=== PATIENT | male | born 1955 | race Caucasian/White ===

== ENCOUNTER 2022-02-22 09:04 | Observation (INO) ==
[2022-02-22] MEDS ORDERED: MORPHINE SULFATE INJ 2 MG INJ IVP PRN (11:19)
[2022-02-22] MEDS ORDERED: NS 250 ML IV 250 ML IV ONE (12:58)
[2022-02-22] MEDS: ZOSYN VIAL 3.375 GRAMS 3.375 G in NS 100 ML IV 100 ML IV SCH ×3 (13:19→21:48)
[2022-02-22] MEDS: D5 1/2 NS 1,000 ML 1,000 ML IV SCH ×2 (13:19→17:04)
[2022-02-22 13:20] VITALS: BMI 37.5
[2022-02-22] MEDS ORDERED: PROVENTIL NEB TX 0.083% 2.5MG/ 3ML NEB PRN (14:52)
--- NOTE | 2022-02-22 16:11 | RAD ---
HISTORY:Cardiovascular clearance for gallbladder surgeryStudy: Single view chestComparison:NoneFindings:Single underpenetrated, upright portable view is submitted. Lung volumes are low. No infiltrate, effusion, or pneumothorax identified .Cardiac and mediastinal contours are within normal limits .The soft tissues are intact .IMPRESSION:Low lung volumes without acute abnormality.Electronically signed by: CODY DURÁN (Feb 22, 2022 16:10:27)
[2022-02-22] MEDS: DILAUDID INJ IVP PRN (19:58)
[2022-02-23] MEDS: D5 1/2 NS 1,000 ML 1,000 ML IV SCH ×4 (01:06→12:24)
[2022-02-23] MEDS: DILAUDID INJ IVP PRN (04:37)
[2022-02-23] MEDS: ZOSYN VIAL 3.375 GRAMS 3.375 G in NS 100 ML IV 100 ML IV SCH (05:19)
[2022-02-23 06:47] LABS: ALANINE AMINOTRANSFERASE 52 Units/L (12-78); ALBUMIN 2.6 g/dL (3.4-5.0); ALKALINE PHOSPHATASE 49 Units/L (46-116); ASPARTATE AMINO TRANSFERASE 31 Units/L (15-37); BLOOD UREA NITROGEN 25 mg/dL (7-18); CALCIUM 7.8 mg/dL (8.5-10.1); CHLORIDE 103 mmol/L (98-107); COR CA(FOR HYPOALB) 8.9 mg/dL (8.5-10.1); CREATININE 1.08 mg/dL (0.70-1.30); SODIUM 140 mmol/L (136-145); eGFR NON BLACK RACES > 60 (>60)
[2022-02-23 07:03] LABS: BASOPHILS % (AUTO) 0.4 % (0.2-1.0); EOSINOPHILS # (AUTO) 0.1 x10^3/uL (0.0-0.2); EOSINOPHILS % (AUTO) 0.9 % (0.9-2.9); HEMOGLOBIN 15.5 g/dL (13.5-18.0); LYMPHOCYTES # (AUTO) 1.3 X10^3/uL (1.3-2.9); LYMPHOCYTES % (AUTO) 9.6 % (21.0-51.0); MEAN CORPUSCULAR HEMOGLOBIN 33.6 pg (27.0-34.0); MEAN CORPUSCULAR HGB CONC 33.8 g/dL (33.0-35.0); MEAN CORPUSCULAR VOLUME 99.3 fL (80.0-100.0); MEAN PLATELET VOLUME 8.7 fL (7.4-11.0); MONOCYTES # (AUTO) 1.2 x10^3/uL (0.3-0.8); MONOCYTES % (AUTO) 8.9 % (0.0-13.0); NEUTROPHILS # (AUTO) 10.8 x10^3/uL (2.2-4.8); NEUTROPHILS % (AUTO) 80.2 % (42.0-75.0); RED BLOOD COUNT 4.63 X10^6/uL (4.7-6.0); RED CELL DISTRIBUTION WIDTH 15.1 % (11.6-16.5)
[2022-02-23 07:30] LABS: PLATELET MORPHOLOGY COMMENT NORMAL (NORMAL)
[2022-02-23] MEDS ORDERED: BACTROBAN TOPICAL OINT ONE (08:57)
[2022-02-23] MEDS ORDERED: ULTANE GAS IN ONE (08:58)
[2022-02-23 12:24] VITALS: BP 163/78
--- NOTE | 2022-02-23 13:51 | DR.CONSULT ---
CONSULT Consultation for Day of: Date: 02/22/22 Chief Complaint Chief Complaint: Medical consult Allergies Allergies Allergy/AdvReac Type Severity Reaction Status Date / Time acetaminophen [From [facility]] Allergy Verified 02/22/22 12:44 hydrocodone [From [facility]] Allergy Verified 02/22/22 12:44 morphine Allergy Verified 02/22/22 12:44 Sulfa (Sulfonamide Allergy Verified 02/22/22 12:44 Antibiotics) [SULFA] History of Present Illness History of Present Illness: This is a 66-year-old white male whom I was consulted for medical care regarding hypertension and COPD. He came from [facility] with possibility of a gallbladder rupture. 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 Other than that he does not report any other problems. He reports smoking Sam sweets cigars but does not smoke cigarettes. He reports to me that he does not want surgery until he discusses it with his family and I told him that the general surgeon will be in later on today talk to him about that. Past Medical History Past Medical History: COPD and Hypertension Family History Family Medical History: Diabetes Mellitus and [place] Social History Does patient currently use any type of tobacco product: Yes Have you used tobacco products in the last 12 months: Yes Type of Tobacco Use: Cigarettes How many years tobacco product used: 55 Does any household member use tobacco: No Alcohol Use: Heavy Medications Home Medications: acetaminophen [From [facility]] Allergy (Verified 02/22/22 12:44) hydrocodone [From [facility]rod] Allergy (Verified 02/22/22 12:44) morphine Allergy (Verified 02/22/22 12:44) Sulfa (Sulfonamide Antibiotics) [SULFA] Allergy (Verified 02/22/22 12:44) CONTINUE taking the following medications albuterol sulfate 90 mcg/actuation aerosol inhaler 1 inh inhalation PRN PRN 02/22/22 [History] amlodipine 10 mg tablet 1 tab PO QDAY 02/22/22 [History] doxycycline hyclate 100 mg capsule 1 cap PO BID 02/22/22 [History] gabapentin 100 mg capsule 1 cap PO HS 02/22/22 [History] lisinopril 20 mg tablet 1 tab PO QDAY 02/22/22 [History] rivcamdq-uhmvybrwj-ofbarxky 3.5 mg/mL-10,000 unit/mL-0.1% eye drops 1 drp ophthalmic (eye) BID 02/22/22 [History] Review of Systems Constitutional: No Symptoms Reported Eyes: No Symptoms Reported ENT: No Symptoms Reported Respiratory: Cough Cardiovascular: No Symptoms Reported Gastrointestinal: Abdominal Pain Genitourinary: No Symptoms Reported Musculoskeletal: No Symptoms Reported Skin: No Symptoms Reported Neurological: No Symptoms Reported Physical Exam Vital Signs: Temperature 98.7 F Pulse Rate [Left Brachial] 78 Pulse Rate 79 Respiratory Rate 18 Blood Pressure [Left Arm] 163/78 O2 Sat by Pulse Oximetry 91 Oriented: Normal Eyes: Normal Ear: Normal Nose: Normal Throat: Normal Respiratory: Rhonchi Throughout and Wheezes Throughout Cardiovascular: Normal : Normal Auscultation: Bowel Sounds: Normal Palpation: Normal Tenderness: RUQ Skin: Normal Musculoskeletal: Normal Psychiatric: Normal Mood Description: Calm Affect: Normal Speech Pattern: Clear and Appropriate Plan (1) Essential hypertension: Status: Acute Plan: Resume home blood pressure meds. (2) COPD (chronic obstructive pulmonary disease): Status: Acute Plan: Resume albuterol.
[2022-02-24 07:23] LABS: WHITE BLOOD COUNT 14.4 X10^3/uL (3.6-10.0)
== END 2022-02-23 12:48 | disposition home or self-care (01) ==
LOC: MED/SURG
PROVIDERS: ADMIT Surgery; ATTEND Surgery
DX: I10 Essential (primary) hypertension; K80.00 Calculus of gallbladder with acute cholecystitis without obstruction; J44.9 Chronic obstructive pulmonary disease, unspecified; R10.84 Generalized abdominal pain; E66.9 Obesity, unspecified; M54.16 Radiculopathy, lumbar region